=== PATIENT | male | born 1980 | race Caucasian/White ===

== ENCOUNTER 2019-01-15 22:15 | Emergency (ER) | payer OTHER ==
[~2019-01-15] VITALS: Ht 177.8 cm; Wt 72.6 kg
[~2019-01-15 22:15] MED LIST: ALLERGEN EAR DR15 M1 OT; AMOXICILLIN875 MG PO; PREDNISONE 20 M20 MG PO; SUPRAX400 MG PO; VISTARIL 25 MG25 M1 OR
[2019-01-15 22:56] LABS: ABSOLUTE BASOPHILS 0.1 thou/uL (0.0-0.2); ABSOLUTE EOSINOPHILS 0.1 thou/uL (0.0-0.7); ABSOLUTE MONOCYTES 1.8 thou/uL (0.0-1.2); ABSOLUTE NEUTROPHILS 11.8 thou/uL (1.6-8.1); BASOPHILS 0.4 %; EOSINOPHILS 0.8 %; HEMOGLOBIN 14.1 gm/dL (14.0-18.0); LYMPHOCYTES 17.8 %; MCHC 34.4 g/dL (28.0-37.0); MONOCYTES 10.4 %; MPV 8.5 fl. (7.2-11.1); NUCLEATED RBCS 0 /100WBC; PLATELET COUNT* 305 thou/uL (150-400); POLYS 70.6 %; RBC 4.27 mil/uL (4.50-6.00); RDW-CV 13.3 % (10.5-14.5); WBC 16.8 thou/uL (4.0-11.0)
[2019-01-15 22:59] LABS: CREATININE 1.3 mg/dL (0.6-1.3); POTASSIUM 3.5 mmol/L (3.5-5.1)
[2019-01-15 23:04] LABS: ALBUMIN 3.9 g/dL (3.4-5.0); TOTAL BILIRUBIN 0.4 mg/dL (<0.1-1.0); TOTAL PROTEIN 7.6 g/dL (6.4-8.2)
[2019-01-16 00:19] LABS: URINE BILIRUBIN NEGATIVE (Negative); URINE BLOOD 1+ (Negative); URINE CLARITY CLOUDY; URINE COLOR YELLOW; URINE GLUCOSE-RANDOM NEGATIVE (Negative); URINE KETONES TRACE (Negative); URINE NITRITE-REFLEX NEGATIVE (Negative); URINE PROTEIN 2+ (Negative); URINE SPECIFIC GRAVITY 1.015 (1.005-1.030); URINE UROBILINOGEN 0.2 E.U./dl (0.2-1.0)
[2019-01-16 00:22] LABS: URINE LEUKOCYTES-REFLEX 3+ (Negative)
[2019-01-16] MEDS ORDERED: DOXYCYCLINE 10100 MG PO (00:24)
[2019-01-16] MEDS ORDERED: ACETAMINOPHEN-1 EAC1 PO (00:24)
[2019-01-16 00:49] VITALS: BP 111/83
[2019-01-16 01:25] LABS: CASTS None Seen /LPF (None Seen); SQUAMOUS NONE SEEN /LPF (0-3); URINE WBC-REFLEX >25 Many /HPF (0-5)
[2019-01-16 01:29] LABS: BACTERIA-REFLEX 1-9 Few /HPF (None Seen); CRYSTALS None Seen /LPF (None Seen); URINE RBC 0-2 Rare /HPF (0-2)
[2019-01-17 07:35] LABS: HIV-1/HIV-2 ANTIBODY Non Reactive (Non Reactive)
== END 2019-01-16 00:49 | disposition home or self-care (01) ==
LOC: M.ERS 22:15
PROVIDERS: Emergency Medicine
DX: N39.0 Urinary tract infection, site not specified (principal); N49.2 Inflammatory disorders of scrotum; Z90.49 Acquired absence of other specified parts of digestive tract; Z91.013 Allergy to seafood

== ENCOUNTER 2019-01-26 06:10 | Emergency (ER) | payer OTHER ==
[~2019-01-26] VITALS: Ht 177.8 cm; Wt 70.3 kg
[~2019-01-26 06:10] MED LIST changes: +ACETAMINOPHEN-1 EAC1 PO; +DOXYCYCLINE 10100 MG PO
[2019-01-26 06:54] VITALS: BP 135/78
== END 2019-01-26 06:55 | disposition home or self-care (01) ==
LOC: M.ERS 06:10
DX: A53.9 Syphilis, unspecified (principal); Z91.013 Allergy to seafood; Z90.49 Acquired absence of other specified parts of digestive tract

== ENCOUNTER 2019-05-19 17:04 | Emergency (ER) | payer OTHER ==
[~2019-05-19] VITALS: Ht 175.3 cm; Wt 70.3 kg
[2019-05-19] MEDS ORDERED: NORCO 5-325 TA1 EAC1 PO (18:10)
[2019-05-19] MEDS ORDERED: KEFLEX500 M1 PO (18:10)
[2019-05-19] MEDS ORDERED: BACTRIM DS TAB1 EACH PO (18:10)
[2019-05-19 18:25] VITALS: BP 132/88
== END 2019-05-19 18:26 | disposition home or self-care (01) ==
LOC: M.ERS 17:04
DX: L02.414 Cutaneous abscess of left upper limb (principal); L02.211 Cutaneous abscess of abdominal wall; Z90.49 Acquired absence of other specified parts of digestive tract; Z91.013 Allergy to seafood

== ENCOUNTER 2019-07-20 16:22 | Emergency (ER) | payer OTHER ==
[~2019-07-20] VITALS: Ht 175.3 cm; Wt 70.3 kg
[~2019-07-20 16:22] MED LIST changes: +BACTRIM DS TAB1 EACH PO; +KEFLEX500 M1 PO; +NORCO 5-325 TA1 EAC1 PO
[2019-07-20] MEDS ORDERED: MUPIROCIN15 GM TOP (16:50)
[2019-07-20] MEDS ORDERED: BACTRIM DS TAB1 EAC1 PO (16:50)
[2019-07-20 16:59] VITALS: BP 120/77
== END 2019-07-20 17:00 | disposition home or self-care (01) ==
LOC: M.ERS 16:22
DX: L02.416 Cutaneous abscess of left lower limb (principal); Z90.49 Acquired absence of other specified parts of digestive tract; Z86.14 Personal history of Methicillin resistant Staphylococcus aureus infection; Z91.013 Allergy to seafood

== ENCOUNTER 2021-04-24 13:54 | Emergency (ER) | payer OTHER ==
[~2021-04-24] VITALS: Ht 175.3 cm; Wt 68.0 kg
[~2021-04-24 13:54] MED LIST changes: +BACTRIM DS TAB1 EAC1 PO; +MUPIROCIN15 GM TOP
[2021-04-24] MEDS ORDERED: HYDROCODON-ACE1 EAC7 PO (14:59)
[2021-04-24] MEDS ORDERED: CEPHALEXIN500 MG PO (15:06)
[2021-04-24] MEDS ORDERED: BACTRIM DS TAB1 EACH PO (15:06)
[2021-04-24 15:14] VITALS: BP 106/73
== END 2021-04-24 15:14 | disposition home or self-care (01) ==
LOC: M.ERS 13:54
DX: L02.415 Cutaneous abscess of right lower limb (principal); L03.115 Cellulitis of right lower limb; Z90.49 Acquired absence of other specified parts of digestive tract; Z91.013 Allergy to seafood